=== PATIENT | male | born 1990 | race Caucasian/White ===

== ENCOUNTER 2017-04-01 18:25 | Emergency (ER) | payer SELFPAY ==
[2017-04-01] MEDS ORDERED: Ketorolac 60 MG/2 ML SDV IM ONE (19:03)
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
[2017-04-01 20:57] VITALS: BP 117/73
== END 2017-04-01 19:39 | disposition home or self-care (01) ==
LOC: MW.ED 18:25
DX: G89.29 Other chronic pain (principal); M54.5 Low back pain; F17.210 Nicotine dependence, cigarettes, uncomplicated; Z88.1 Allergy status to other antibiotic agents
CPT/HCPCS: 96372; 99283; J1885; 99282

== ENCOUNTER 2017-04-21 15:18 | Emergency (ER) | payer SELFPAY ==
[2017-04-21] MEDS ORDERED: Lidocaine 1% 20 ML MDV INJECT ONE (15:38)
[2017-04-21] MEDS ORDERED: Bacitracin Oint 1 GM U/D Packet TOP ONE (15:38)
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
[2017-04-21 15:46] VITALS: BP 155/86
== END 2017-04-21 16:15 | disposition home or self-care (01) ==
LOC: MW.ED 15:18
DX: S61.412A Laceration without foreign body of left hand, initial encounter (principal); W45.8XXA Other foreign body or object entering through skin, initial encounter
CPT/HCPCS: 12001; 99283

== ENCOUNTER 2019-03-09 22:53 | Emergency (ER) | payer SELFPAY ==
[2019-03-09] MEDS ORDERED: Ketorolac 60 MG/2 ML SDV IM ONE (23:15)
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
[2019-03-10 00:03] VITALS: BP 105/48; PULSE 79
== END 2019-03-10 00:02 | disposition home or self-care (01) ==
LOC: MW.ED 22:53
DX: R51 Headache (principal); Z88.1 Allergy status to other antibiotic agents; Z88.5 Allergy status to narcotic agent
CPT/HCPCS: 96372; 99283; J1885

== ENCOUNTER 2019-10-16 18:55 | Emergency (ER) | payer SELFPAY ==
[2019-10-16] MEDS ORDERED: CEFTRIAXONE IM ONE (19:19)
[2019-10-16] MEDS ORDERED: LIDOCAINE 1% IM ONE (19:19)
[2019-10-16] MEDS ORDERED: Bacitracin Oint 1 GM U/D Packet TOP ONE (19:22)
[2019-10-16] MEDS ORDERED: Azithromycin 250 MG Tab PO ONE (19:22)
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
[2019-10-17 04:25] VITALS: BP 136/74; PULSE 73
== END 2019-10-16 20:09 | disposition home or self-care (01) ==
LOC: MW.ED 18:55
DX: S31.21XA Laceration without foreign body of penis, initial encounter (principal); N48.22 Cellulitis of corpus cavernosum and penis; R59.0 Localized enlarged lymph nodes; Z88.1 Allergy status to other antibiotic agents; Z88.5 Allergy status to narcotic agent; X58.XXXA Exposure to other specified factors, initial encounter
CPT/HCPCS: 96372; 99283; A9270; J0696; J2001

== ENCOUNTER 2020-09-25 23:40 | Emergency (ER) | payer OTHER ==
[2020-09-26 00:08] VITALS: BP 149/102; PULSE 104
[2020-09-26] MEDS ORDERED: Sodium Chloride 0.9% 10 ML Syringe FLUSH PRN (00:10)
[2020-09-26] MEDS ORDERED: Sodium Chloride 0.9% 10 ML SDV IV PRN (00:10)
[2020-09-26] MEDS ORDERED: Sodium Chloride 0.9% 2.5 ML Syringe FLUSH PRN (00:10)
--- NOTE | 2020-09-26 00:45 | CT ---
INDICATION: Altered mental status. COMPARISON: Port of the CT of the head from 03/20/2018 TECHNIQUE: CT examination of the head was performed with 5 mm thick axial and 2 mm thick coronal and sagittal sections without intravenous contrast. Images were obtained from the vertex of the skull through the skull base, and I examined the images with the brain and bone windows. Please note that all CT scans at this facility use dose modulation, iterative reconstruction, and/or weight-based dosing when appropriate to reduce radiation dose to as low as reasonably achievable. FINDINGS: There is mild patient motion, degrading fine detail. Today`s study is diagnostic. Again seen is a moderate sized arachnoid cyst anterior to the right temporal lobe, of no clinical concern. The brain is otherwise normal in appearance for the patient`s age on today`s study, with no sign of mass lesion, mass effect, hemorrhage, or edema. The ventricles and sulci are normal in appearance for the patient`s age. The visualized portions of the orbits are normal in appearance. The visualized paranasal sinuses and mastoids are clear. The osseous structures are normal in their appearance with no sign of abnormality in the skull base or calvarium. IMPRESSION: No sign of acute injury to the brain. Stable appearance of a moderate sized arachnoid cyst anterior to the right temporal lobe. Please note that all CT scans at this facility use dose modulation, iterative reconstruction, and/or weight-based dosing when appropriate to reduce radiation dose to as low as reasonably achievable. Dictated by Ghulam Vaughan MD @ 09/26/2020 12:44:[address] Ghulam Vaughan @ Sep 26 2020 12:44AM
[2020-09-26 00:47] LABS: BLOOD UREA NITROGEN,BUN 10 mg/dL (7.0-18.0); CARBON DIOXIDE,CO2 28.2 mmol/L (21.0-32.0); CHLORIDE,CL 105 mmol/L (98-107); GLUCOSE RANDOM 108 mg/dL (74-106); POTASSIUM,K 3.2 mmol/L (3.5-5.1); SODIUM,NA 143 mmol/L (136-148)
[2020-09-26] MEDS ORDERED: Iopamidol 755 MG/ML 500 ML Multipack Bottle IVPUSH STA (00:51)
--- NOTE | 2020-09-26 00:53 | CT ---
DATE: 09/26/2020. CLINICAL HISTORY: Patient with altered mental status. TECHNIQUE: Standard helical CT image acquisition through the head and neck after intravenous contrast bolus enhancement was performed. Multiplanar reconstructed images performed on a separate workstation. COMPARISON: None. FINDINGS: The origins of the great vessels from the aortic arch are patent. The origins of the right and left vertebral arteries are patent. The common carotid arteries are patent. No significant stenoses at the origins of the proximal internal carotid arteries by NASCET criteria. The more distal cervical segments of the internal carotid arteries are patent. The cervical segments of the vertebral arteries are patent. No intracranial proximal large vessel occlusion or flow-limiting stenosis. The visualized lung apices are unremarkable. The thyroid gland is unremarkable. The cervical spine is within normal limits. IMPRESSION: 1. No intracranial proximal large vessel occlusion or flow limiting luminal stenosis. 2. Patent cervical arterial vasculature with no hemodynamically significant luminal stenosis. Please note that all CT scans at this facility use dose modulation, iterative reconstruction, and/or weight-based dosing when appropriate to reduce radiation dose to as low as reasonably achievable. Dictated by Shawn Burrell MD @ 09/26/2020 2:17:[address] Shawn Burrell @ Sep 26 2020 2:17PM
--- NOTE | 2020-09-26 01:23 | CR ---
HISTORY: Shortness of breath. COMPARISON: Chest and right ribs from 04/30/2018 FINDINGS: A portable erect AP view of the chest was obtained at 0035 hours. The lungs remain clear. No focal or diffuse infiltrates are present. The heart remains normal in size. The mediastinum is normal in appearance. The osseous structures are normal in appearance for the patient`s age. IMPRESSION: Normal portable chest single view. Dictated by Ghulam Vaughan MD @ 09/26/2020 1:20:[address] Ghulam Vaughan @ Sep 26 2020 1:20AM
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
--- NOTE | 2020-09-28 21:51 | CT ---
EXAM DATE: 09/25/20 PATIENT'S AGE: 30 Patient: ENOCH YOUNG Facility: [facility] Site . Site : 1990 Study: CT-CTA Neck-09/26/2020 12:05:28 AM Ordering Physician: Apollo Guajardo Final Report: DATE: 09/26/2020. CLINICAL HISTORY: Patient with altered mental status. TECHNIQUE: Standard helical CT image acquisition through the head and neck after intravenous contrast bolus enhancement was performed. Multiplanar reconstructed images performed on a separate workstation. COMPARISON: None. FINDINGS: The origins of the great vessels from the aortic arch are patent. The origins of the right and left vertebral arteries are patent. The common carotid arteries are patent. No significant stenoses at the origins of the proximal internal carotid arteries by NASCET criteria. The more distal cervical segments of the internal carotid arteries are patent. The cervical segments of the vertebral arteries are patent. No intracranial proximal large vessel occlusion or flow-limiting stenosis. The visualized lung apices are unremarkable. The thyroid gland is unremarkable. The cervical spine is within normal limits. IMPRESSION: 1. No intracranial proximal large vessel occlusion or flow limiting luminal stenosis. 2. Patent cervical arterial vasculature with no hemodynamically significant luminal stenosis. Please note that all CT scans at this facility use dose modulation, iterative reconstruction, and/or weight-based dosing when appropriate to reduce radiation dose to as low as reasonably achievable. Dictated by Shawn Burrell MD @ 09/26/2020 2:17:27 PM Signed by: Shawn Burrell MD @09/26/2020 2:17:27 PM (Electronic Signature) Report Signed by Proxy. [facility]
--- NOTE | 2020-09-28 21:56 | CT ---
EXAM DATE: 09/25/20 PATIENT'S AGE: 30 Patient: ENOCH YOUNG Facility: [facility] Site . Site : 1990 Study: CT-Head STROKE PROTOCOL -09/26/2020 12:30:28 AM Ordering Physician: Apollo Guajardo Final Report: INDICATION: Altered mental status. COMPARISON: Port of the CT of the head from 03/20/2018 TECHNIQUE: CT examination of the head was performed with 5 mm thick axial and 2 mm thick coronal and sagittal sections without intravenous contrast. Images were obtained from the vertex of the skull through the skull base, and I examined the images with the brain and bone windows. Please note that all CT scans at this facility use dose modulation, iterative reconstruction, and/or weight-based dosing when appropriate to reduce radiation dose to as low as reasonably achievable. FINDINGS: There is mild patient motion, degrading fine detail. Today`s study is diagnostic. Again seen is a moderate sized arachnoid cyst anterior to the right temporal lobe, of no clinical concern. The brain is otherwise normal in appearance for the patient`s age on today`s study, with no sign of mass lesion, mass effect, hemorrhage, or edema. The ventricles and sulci are normal in appearance for the patient`s age. The visualized portions of the orbits are normal in appearance. The visualized paranasal sinuses and mastoids are clear. The osseous structures are normal in their appearance with no sign of abnormality in the skull base or calvarium. IMPRESSION: No sign of acute injury to the brain. Stable appearance of a moderate sized arachnoid cyst anterior to the right temporal lobe. Please note that all CT scans at this facility use dose modulation, iterative reconstruction, and/or weight-based dosing when appropriate to reduce radiation dose to as low as reasonably achievable. Dictated by Ghulam Vaughan MD @ 09/26/2020 12:44:13 AM ----- ADDENDUM ----- The findings were called and faxed to Dr. Guajardo at 12:56am on 09/26/2020. I now have the previous CT of the head from 03/20/2000 18 for comparison and there has been no change in the appearance of the brain, including stable appearance of the arachnoid cyst anterior to the right temporal lobe. Dictated by Ghulam Vaughan MD @ Sep 26 2020 12:59AM Signed by: Ghulam Vaughan MD @09/26/2020 12:44:13 AM (Electronic Signature) Report Signed by Proxy. IVETTE
== END 2020-09-26 02:11 | disposition home or self-care (01) ==
LOC: MW.ED 23:40
DX: I10 Essential (primary) hypertension (principal); Z88.0 Allergy status to penicillin; Z88.5 Allergy status to narcotic agent
CPT/HCPCS: 36415; 70450; 70496; 70498; 71045; 80053; 80307; 84443; 84484; 85025; 85610; 85730; 93005; 99284; Q9967; 93010

== ENCOUNTER 2022-10-01 14:13 | Emergency (ER) | payer SELFPAY ==
[2022-10-01 16:06] VITALS: BP 115/65; PULSE 76
[2022-10-01] MEDS ORDERED: Ibuprofen 600 MG Tab PO ONE (16:08)
== END 2022-10-01 16:24 ==
LOC: MW.ED 14:13
DX: R51.9 Headache, unspecified (principal); Z88.0 Allergy status to penicillin; Z88.5 Allergy status to narcotic agent; Z20.822 Contact with and (suspected) exposure to COVID-19
CPT/HCPCS: 70450; 99284; A9270

== ENCOUNTER 2022-11-21 21:13 | Emergency (ER) | payer SELFPAY ==
[2022-11-21 21:33] VITALS: BP 142/93; PULSE 104
[2022-11-21] MEDS ORDERED: Sodium Chloride 0.9% 2.5 ML Syringe FLUSH PRN (21:46)
[2022-11-21] MEDS ORDERED: Sodium Chloride 0.9% 10 ML Syringe FLUSH PRN (21:46)
[2022-11-21 22:09] LABS: BASOPHILS PERCENT AUTO 0.3 % (0.0-1.5); EOSINOPHILS ABSOLUTE AUTO 0.1 K/uL (0.0-0.7); EOSINOPHILS PERCENT AUTO 1.9 % (0.0-7.0); LYMPHOCYTES ABSOLUTE AUTO 1.6 K/uL (0.6-2.4); LYMPHOCYTES PERCENT AUTO 22.8 % (16.0-40.0); MEAN CORPUSCULAR HGB CONC 34.1 g/dL (31.0-37.0); MONOCYTES ABSOLUTE AUTO 0.5 K/uL (0.0-0.8); MONOCYTES PERCENT AUTO 7.5 % (0.0-15.0); NEUTROPHILS ABSOLUTE AUTO 4.7 K/uL (1.4-5.7); NEUTROPHILS PERCENT AUTO 67.5 % (48.0-80.0); NRBC ABSOLUTE 0 K/uL; PLATELET COUNT,PLT 253 K/uL (150-400); RED BLOOD CELL COUNT 4.66 M/uL (4.50-5.90); WHITE BLOOD CELL COUNT,WBC 6.92 K/uL (4.0-11.0)
[2022-11-21 22:43] LABS: A/G RATIO 1.1 (0.9-1.6); ALANINE AMINOTRANSFERASE,ALT 26 IU/L (14-63); ALBUMIN 3.7 g/dL (3.4-5.0); ALKALINE PHOSPHATASE 111 U/L (46-116); ASPARTATE AMNIOTRANSFERASE,AST 21 IU/L (15-37); BILIRUBIN TOTAL 0.2 mg/dL (0.2-1.0); BLOOD UREA NITROGEN,BUN 19 mg/dL (7.0-18.0); CALCIUM 9.1 mg/dL (8.5-10.1); CARBON DIOXIDE,CO2 27.7 mmol/L (21.0-32.0); CHLORIDE,CL 106 mmol/L (98-107); CREATININE 0.8 mg/dL (0.8-1.3); EST CRCL DRUG DOSING (CG) 121.84 mL/min; ESTIMATED GFR 122 mL/min (>60); ETHANOL BLOOD MEDICAL < 3.0 mg/dL; GLUCOSE RANDOM 105 mg/dL (74-106); POTASSIUM,K 3.6 mmol/L (3.5-5.1); PROTEIN TOTAL,TP 7.2 g/dL (6.4-8.2); SODIUM,NA 141 mmol/L (136-148)
== END 2022-11-21 23:27 | disposition home or self-care (01) ==
LOC: MW.ED 21:13
DX: G93.0 Cerebral cysts (principal); Z88.1 Allergy status to other antibiotic agents; Z88.5 Allergy status to narcotic agent
CPT/HCPCS: 36415; 70450; 70450-26; 72125; 72125-26; 80053; 80307; 85025; 99283; 99284

== ENCOUNTER 2023-02-06 20:03 | Emergency (ER) | payer BC ==
[2023-02-06] MEDS ORDERED: Sodium Chloride 0.9% 2.5 ML Syringe FLUSH PRN (20:20)
[2023-02-06] MEDS ORDERED: Sodium Chloride 0.9% 10 ML Syringe FLUSH PRN (20:20)
[2023-02-06] MEDS ORDERED: Acetaminophen 500 MG Tab PO STA (20:22)
[2023-02-06] MEDS ORDERED: Ketorolac 30 MG/ML SDV IVPUSH STA (20:22)
[2023-02-06 20:53] LABS: BASOPHILS PERCENT AUTO 0.3 % (0.0-1.5); EOSINOPHILS ABSOLUTE AUTO 0.3 K/uL (0.0-0.7); EOSINOPHILS PERCENT AUTO 4.9 % (0.0-7.0); HEMATOCRIT 40.6 % (38.0-50.0); HEMOGLOBIN 13.3 g/dL (13.0-17.0); LYMPHOCYTES ABSOLUTE AUTO 2.4 K/uL (0.6-2.4); LYMPHOCYTES PERCENT AUTO 39.4 % (16.0-40.0); MEAN CORPUSCULAR HEMOGLOBIN 29.4 pg (27.0-32.0); MEAN CORPUSCULAR HGB CONC 32.8 g/dL (31.0-37.0); MEAN CORPUSCULAR VOLUME 89.8 fL (80.0-98.0); MONOCYTES ABSOLUTE AUTO 0.6 K/uL (0.0-0.8); MONOCYTES PERCENT AUTO 9.3 % (0.0-15.0); NEUTROPHILS ABSOLUTE AUTO 2.8 K/uL (1.4-5.7); NEUTROPHILS PERCENT AUTO 46.1 % (48.0-80.0); NRBC ABSOLUTE 0 K/uL; PLATELET COUNT,PLT 196 K/uL (150-400); RED BLOOD CELL COUNT 4.52 M/uL (4.50-5.90); WHITE BLOOD CELL COUNT,WBC 6.11 K/uL (4.0-11.0)
[2023-02-06 21:04] LABS: A/G RATIO 1.1 (0.9-1.6); ALBUMIN 3.4 g/dL (3.4-5.0); BILIRUBIN TOTAL 0.1 mg/dL (0.2-1.0); CALCIUM 8.3 mg/dL (8.5-10.1); CARBON DIOXIDE,CO2 27.6 mmol/L (21.0-32.0); CREATININE 0.7 mg/dL (0.8-1.3); EST CRCL DRUG DOSING (CG) 144.27 mL/min; POTASSIUM,K 3.6 mmol/L (3.5-5.1); PROTEIN TOTAL,TP 6.4 g/dL (6.4-8.2)
[2023-02-07 01:17] VITALS: BP 123/79; PULSE 66
== END 2023-02-06 22:01 | disposition home or self-care (01) ==
LOC: MW.ED 20:03
DX: R07.89 Other chest pain (principal); R51.9 Headache, unspecified; Z88.0 Allergy status to penicillin; Z88.5 Allergy status to narcotic agent
CPT/HCPCS: 36415; 70450; 71046; 80053; 83690; 83735; 84484; 85025; 93005; 96374; 99285; A9270; J1885; J3490; 93010; 99283

== ENCOUNTER 2023-02-23 20:56 | Emergency (ER) | payer BC ==
[2023-02-23 21:51] LABS: BASOPHILS ABSOLUTE AUTO 0.03 K/uL (0.00-0.20); BASOPHILS PERCENT AUTO 0.4 % (0.0-1.0); EOSINOPHILS ABSOLUTE AUTO 0.32 K/uL (0.00-0.45); EOSINOPHILS PERCENT AUTO 4.3 % (0.0-6.0); HEMATOCRIT 40.8 % (42.0-52.0); HEMOGLOBIN 14.1 g/dL (14.0-18.0); IMMATURE GRAN ABSOLUTE AUTO 0.03 K/uL (0.00-0.05); IMMATURE GRAN PERCENT AUTO 0.4 % (0.0-0.4); LYMPHOCYTES ABSOLUTE AUTO 2.67 K/uL (1.00-4.80); LYMPHOCYTES PERCENT AUTO 35.9 % (24.0-44.0); MEAN CORPUSCULAR HEMOGLOBIN 30.3 pg (28.0-32.0); MEAN CORPUSCULAR HGB CONC 34.6 g/dL (32.0-36.0); MEAN CORPUSCULAR VOLUME 87.7 fL (83.0-99.0); MEAN PLATELET VOLUME 9.9 fL (9.4-12.4); MONOCYTES ABSOLUTE AUTO 0.59 K/uL (0.00-0.80); MONOCYTES PERCENT AUTO 7.9 % (0.0-8.0); NEUTROPHILS ABSOLUTE AUTO 3.79 K/uL (1.80-7.70); NEUTROPHILS PERCENT AUTO 51.1 % (41.0-71.0); PLATELET COUNT,PLT 214 K/uL (150-400); RED BLOOD CELL COUNT 4.65 M/uL (4.52-5.90); WHITE BLOOD CELL COUNT,WBC 7.43 K/uL (3.9-11.3)
[2023-02-23 22:34] LABS: CORONAVIRUS COVID-19 NAA NEGATIVE (NEGATIVE); INFLUENZA A NAA NEGATIVE (NEGATIVE); INFLUENZA B NAA NEGATIVE (NEGATIVE)
[2023-02-23 22:35] LABS: A/G RATIO 1.2 (0.9-1.6); ALANINE AMINOTRANSFERASE,ALT 22 IU/L (14-63); ALBUMIN 3.7 g/dL (3.4-5.0); ALKALINE PHOSPHATASE 124 U/L (46-116); ASPARTATE AMNIOTRANSFERASE,AST 14 IU/L (15-37); BILIRUBIN TOTAL 0.2 mg/dL (0.2-1.0); BLOOD UREA NITROGEN,BUN 19 mg/dL (7.0-18.0); CALCIUM 8.5 mg/dL (8.5-10.1); CARBON DIOXIDE,CO2 29.6 mmol/L (21.0-32.0); CHLORIDE,CL 102 mmol/L (98-107); CREATININE 0.8 mg/dL (0.8-1.3); EST CRCL DRUG DOSING (CG) 121.84 mL/min; GLUCOSE RANDOM 100 mg/dL (74-106); POTASSIUM,K 3.4 mmol/L (3.5-5.1); PROTEIN TOTAL,TP 6.9 g/dL (6.4-8.2); SODIUM,NA 137 mmol/L (136-148)
[2023-02-23 22:38] LABS: ESTIMATED GFR 122 mL/min (>60)
[2023-02-23 22:54] VITALS: BP 109/71; PULSE 67
== END 2023-02-23 22:53 | disposition home or self-care (01) ==
LOC: MW.ED 20:56
DX: R07.9 Chest pain, unspecified (principal); R06.02 Shortness of breath; Z88.0 Allergy status to penicillin; Z88.5 Allergy status to narcotic agent; Z20.822 Contact with and (suspected) exposure to COVID-19
CPT/HCPCS: 0240U; 36415; 80053; 84484; 85025; 93005; 99285; 93010; 99283